=== PATIENT | female | born 1990 | race Caucasian/White ===

== ENCOUNTER 2018-10-21 19:25 | Emergency (ER) | payer OTHER ==
[2018-10-21 19:43] VITALS: BP 124/68
[2018-10-21] MEDS ORDERED: CYCLOBENZAPRINE HCL 10 MG TABLET PO ONE (21:20)
[2018-10-21] MEDS ORDERED: LIDOCAINE 5% (700 MG) TRANSDERMAL ADH..PATCH TP ONE (21:20)
[2018-10-21 21:41] LABS: APPEARANCE,URINE CLEAR; BILIRUBIN,URINE NEGATIVE (NEGATIVE); COLOR,URINE YELLOW; GLUCOSE, URINE NEGATIVE (NEGATIVE); KETONES,URINE NEGATIVE (NEGATIVE); LEUKOCYTE ESTERASE,URINE NEGATIVE (NEGATIVE); NITRITE,URINE NEGATIVE (NEGATIVE); PROTEIN,URINE NEGATIVE (NEGATIVE); URINE SPECIFIC GRAVITY 1.026; UROBILINOGEN,URINE NEGATIVE mg/dL (<2.0)
[2018-10-21] MEDS ORDERED: KETOROLAC TROMETHAMINE 60 MG/2 ML SDV IM ONE (22:01)
--- NOTE | 2018-10-21 22:40 | ER Document Report ---
HPI - HPI Patient complains to provider of: back pain Time Seen by Provider: 10/21/18 20:50 Pain Level: 4 Context: Patient is a 27-year-old female presents the emergency department complaining of generalized lower back pain. Patient states she has had generalized lower back pain for the last couple of days but noted today when she was standing in the kitchen the lower back pain increased and she was unable to stand anymore. Patient states she did take Tylenol and Motrin at home and denies trauma to the lower back area. Patient denies any urinary retention, denies dysuria, denies loss of bowel or bladder. Patient denies numbness or tingling in any extremity. Upon my arrival to the patient room she was sleeping and in no obvious distress. Past medical history: Rbing-Umlsfldqk-Javbo, hypothyroid Medications: Synthroid, control, Wellbutrin Allergies: Naproxen - REPRODUCTIVE Reproductive: DENIES: : Past Medical History - General Information source: Patient - Social History Smoking Status: Unknown if Ever Smoked Family History: Reviewed & Not Pertinent Patient has suicidal ideation: No Patient has homicidal ideation: No Renal/ Medical History: Denies: Hx Peritoneal Dialysis Past Surgical History: Reports: Hx Oral Surgery - Immunizations Hx Diphtheria, Pertussis, Tetanus Vaccination: Yes Vertical Provider Document - CONSTITUTIONAL Agree With Documented VS: Yes Notes: GENERAL: Alert, interacts well. No acute distress. HEAD: Normocephalic, atraumatic. EYES: Pupils equal, round, and reactive to light. Extraocular movements intact. ENT: Oral mucosa moist, tongue midline. NECK: Full range of motion. Supple. Trachea midline. LUNGS: Clear to auscultation bilaterally, no wheezes, rales, or rhonchi. No respiratory distress. HEART: Regular rate and rhythm. No murmur ABDOMEN: Soft, non-tender. Non-distended. Bowel sounds present in all 4 quadrants. EXTREMITIES: Moves all 4 extremities spontaneously. No edema, normal radial and dorsalis pedis pulses bilaterally. No cyanosis. 5 out of 5 strength all 4 ext remities. BACK: no cervical, thoracic, lumbar midline tenderness. No saddle anesthesia, normal distal neurovascular exam. Patient states generalized pain lumbar paraspinal region patient denies pain radiating to either buttocks or numbness or tingling in any extremity. NEUROLOGICAL: Alert and oriented x3. Normal speech. cranial nerves II through XII grossly intact PSYCH: Normal affect, normal mood. SKIN: Warm, dry, normal turgor. No rashes or lesions noted. No erythema, swelling, indurated or fluctuant areas noted in the area where a pilonidal cyst would be. - INFECTION CONTROL TRAVEL OUTSIDE OF THE [place] IN LAST 30 DAYS: No Course - Re-evaluation Re-evalutation: 10/21/18 22:40 Discussed at length due to patient not having spinal tenderness there is no need for images at this time. Discussed need to follow-up with primary care provider and [facility] for an MRI of her lower back. Patient has no urinary retention, loss of bowel or bladder, numbness or tingling in any extremity. Patient strength is 5 out of 5 all 4 extremities. - Vital Signs Vital signs: Temp Pulse Resp BP Pulse Ox 98.4 F 74 18 124/68 99 10/21/18 19:41 10/21/18 19:41 10/21/18 19:41 10/21/18 19:41 10/21/18 19:41 - Laboratory Laboratory results interpreted by me: 10/21/18 21:26 Urine Ascorbic Acid 40 H Discharge - Discharge Clinical Impression: Lower back pain Qualifiers: Chronicity: acute Back pain laterality: bilateral Sciatica presence: unspecified whether sciatica present Qualified Code(s): M54.5 - Low back pain Condition: Stable Disposition: HOME, SELF-CARE Instructions: Warm Packs ([facility]), Low Back Pain ([facility]), Muscle Strain ([facility]), Pain Medication Injection ([facility]) Additional Instructions: As we discussed you have been seen and treated in the emergency department for your lower back pain. Please take medications as prescribed. Please follow-up with your primary care provider and [facility]. Please return to the emergency room for any other concerning symptoms. Stretching Exercises for the Back The physician has recommended that you begin stretching exercises for your back. These are often used even while the back is painful. However, you should notify the physician if the activities seem to increase your pain. PELVIC TILT: Lie flat on your back with knees bent. Tighten your stomach and buttock muscles so it flattens your lower back against the floor. Hold 10 seconds. Repeat 10 times, twice daily. KNEE RAISE: Lying on the back with knees bent, raise one knee to your chest, then the other. Hold both knees against the chest 10 seconds, then lower one knee at a time. Repeat 10 times, twice daily. PARTIAL TRUNK RAISE: Lie face down, arms at your sides. Keeping your waist on the floor, use your arms raise your chest up. Support yourself on your elbows for 30 seconds. Repeat twice daily, increasing the time to two minutes a s you recover. Prescriptions: Cyclobenzaprine HCl [Flexeril 10 mg Tablet] 10 mg PO TIDP PRN #15 tab PRN Reason: Referrals: KRISTIN PETER PA-C [Primary Care Provider] - Follow up as needed ROMEO DUTTON DO [ACTIVE STAFF] - Follow up as needed
== END 2018-10-21 23:04 | disposition home or self-care (01) ==
LOC: ER 19:25
DX: M54.5 Low back pain (principal)
CPT/HCPCS: 99283; 96372; 81025; 81001; J1885

== ENCOUNTER 2018-12-01 22:05 | Emergency (ER) | payer OTHER ==
[2018-12-01 22:09] VITALS: BP 135/84
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
== END 2018-12-02 00:05 | disposition home or self-care (01) ==
LOC: ER 22:05
DX: T49.8X1A Poisoning by other topical agents, accidental (unintentional), initial encounter (principal); L24.3 Irritant contact dermatitis due to cosmetics; Y92.59 Other trade areas as the place of occurrence of the external cause; Z88.8 Allergy status to other drugs, medicaments and biological substances
CPT/HCPCS: 99283

== ENCOUNTER 2019-05-24 09:01 | Emergency (ER) | payer OTHER ==
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
--- NOTE | 2019-05-24 10:08 | EKG REPORT ---
SEVERITY:- NORMAL ECG - SINUS RHYTHM : Confirmed by: Cassius Maki 24-May-2019 10:07:41
[2019-05-24 10:19] LABS: ABSOLUTE EOSINOPHILS # (AUTO) 0.4 10^3/uL (0.0-0.6); ABSOLUTE LYMPHOCYTES (AUTO) 3.1 10^3/uL (0.5-4.7); ABSOLUTE MONOCYTES (AUTO) 0.4 10^3/uL (0.1-1.4); ABSOLUTE NEUT (AUTO) 3.7 10^3/uL (1.7-8.2); BASOPHILS % (AUTO) 0.4 % (0-2); EOSINOPHILS % (AUTO) 5.8 % (0-6); HEMATOCRIT 42.3 % (36.0-47.0); HEMOGLOBIN 14.5 g/dL (12.0-15.5); LYMPHOCYTES % (AUTO) 39.9 % (13-45); MEAN CORPUSCULAR HEMOGLOBIN 30.1 pg (27.0-33.4); MEAN CORPUSCULAR HGB CONC 34.3 g/dL (32.0-36.0); MEAN CORPUSCULAR VOLUME 88 fl (80-97); MONOCYTES % (AUTO) 5.2 % (3-13); PLATELET COUNT 248 10^3/uL (150-450); RED BLOOD COUNT 4.81 10^6/uL (3.72-5.28); RED CELL DISTRIBUTION WIDTH 12.2 % (11.5-14.0); SEGMENTED NEUTROPHILS % (AUTO) 48.7 % (42-78); TOTAL CELLS COUNTED % (AUTO) 100 %; WHITE BLOOD COUNT 7.7 10^3/uL (4.0-10.5)
[2019-05-24 10:24] LABS: ALANINE AMINOTRANSFERASE 19 U/L (9-52); ALBUMIN 4.4 g/dL (3.5-5.0); ALKALINE PHOSPHATASE 47 U/L (38-126); ANION GAP 12 (5-19); ASPARTATE AMINO TRANSFERASE 21 U/L (14-36); BILIRUBIN,DIRECT 0.2 mg/dL (0.0-0.4); BILIRUBIN,TOTAL 0.3 mg/dL (0.2-1.3); BLOOD UREA NITROGEN 12 mg/dL (7-20); CALCIUM 9.6 mg/dL (8.4-10.2); CARBON DIOXIDE 25 mmol/L (22-30); CHLORIDE 104 mmol/L (98-107); CREATINE KINASE 52 U/L (30-135); GLUCOSE 172 mg/dL (75-110); POTASSIUM 3.7 mmol/L (3.6-5.0); TOTAL PROTEIN 7.5 g/dL (6.3-8.2)
--- NOTE | 2019-05-24 10:29 | RADIOLOGY REPORT (SQ) ---
EXAM DESCRIPTION: CHEST SINGLE VIEW COMPLETED DATE/TIME: 05/24/2019 10:15 am REASON FOR STUDY: chest pain COMPARISON: 11/24/2011 NUMBER OF VIEWS: One view. TECHNIQUE: Single frontal radiographic image of the chest acquired. LIMITATIONS: None. FINDINGS: LUNGS AND PLEURA: Stable appearance. MEDIASTINUM AND HILAR STRUCTURES: Stable heart size and mediastinal structures. HEART AND VASCULAR STRUCTURES: Stable appearance. SUPPORT DEVICES: Appropriate location without change. BONES: No acute findings. OTHER: No other significant finding. IMPRESSION: STABLE APPEARANCE OF THE CHEST. SUPPORT DEVICES UNCHANGED. TECHNICAL DOCUMENTATION: JOB ID: [id number] [employer]- All Rights Reserved Reading location - IP/workstation name: [email or web address]
[2019-05-24 10:36] LABS: CREATINE KINASE MB 0.26 ng/mL (<4.55)
[2019-05-24 10:43] LABS: TROPONIN I < 0.012 ng/mL
[2019-05-24 12:50] VITALS: BP 110/61
== END 2019-05-24 12:50 | disposition home or self-care (01) ==
LOC: ER 09:01
DX: S20.212A Contusion of left front wall of thorax, initial encounter (principal); R07.9 Chest pain, unspecified; R42 Dizziness and giddiness; I45.6 Pre-excitation syndrome; X58.XXXA Exposure to other specified factors, initial encounter; Z91.14 Patient's other noncompliance with medication regimen; Z79.899 Other long term (current) drug therapy
CPT/HCPCS: 36415; 71045; 80053; 82550; 82553; 84484; 85025; 93005; 93010; 99284

== ENCOUNTER 2019-11-16 18:33 | Emergency (ER) | payer OTHER ==
[2019-11-16] MEDS ORDERED: CYCLOBENZAPRINE HCL 10 MG TABLET PO ONE (18:35)
--- NOTE | 2019-11-16 18:47 | ER Document Report ---
ED General - General TRAVEL OUTSIDE OF THE [place] IN LAST 30 DAYS: No - General Chief Complaint: Back Pain Stated Complaint: BACK PAIN Time Seen by Provider: 11/16/19 18:35 Primary Care Provider: KRISTIN PETER PA-C [Primary Care Provider] - Follow up in 1 week Notes: 28-year-old female presents with left mid upper back pain for the last week. Patient states it is intermittent in nature. Patient denies any difficulty with urinating or defecating. Patient denies any saddle anesthesia. Patient denies any injuries. Patient states it is worse today. Patient works as a nurse here in the ER. Patient denies any chest pain, dyspnea or nausea/vomiting, abdominal pain, fever. (WALDO BROTHERS) - Related Data Allergies/Adverse Reactions: naproxen sodium [From Naprelan] Allergy (Verified 11/16/19 18:40) thimerosal Allergy (Verified 11/16/19 18:40) Past Medical History - Social History Smoking Status: Unknown if Ever Smoked Family History: Reviewed & Not Pertinent, Other - Arrhythmia in mother, Crohn's disease in father. denies: CAD Endocrine Medical History: Reports: Hx Hypothyroidism Renal/ Medical History: Denies: Hx Peritoneal Dialysis Past Surgical History: Reports: Hx Cardiac Surgery - 5 cardiac ablasions, Hx Oral Surgery - Immunizations Hx Diphtheria, Pertussis, Tetanus Vaccination: Yes Review of Systems - Review of Systems Notes: Constitutional: Negative for fever. HENT: Negative for sore throat. Eyes: Negative for visual changes. Cardiovascular: Negative for chest pain. Respiratory: Negative for shortness of breath. Gastrointestinal: Negative for abdominal pain, vomiting or diarrhea. Genitourinary: Negative for dysuria. Musculoskeletal: Positive for back pain. Skin: Negative for rash. Neurological: Negative for headaches, weakness or numbness. 10 point ROS negative except as marked above and in HPI. (WALDO BROTHERS) Physical Exam - Vital signs Vitals: Temp Pulse Resp BP Pulse Ox 98.0 F 81 17 146/91 H 97 11/16/19 18:36 11/16/19 18:36 11/16/19 18:36 11/16/19 18:36 11/16/19 18:36 - Notes Notes: GENERAL: Well-appearing, well-nourished and uncomfortable HEAD: Atraumatic, normocephalic. EYES: Extraocular movements intact, sclera anicteric, conjunctiva are normal. NECK: Normal range of motion, supple without lymphadenopathy or JVD. EXTREMITIES: Normal range of motion, no pitting or edema. No clubbing or cyanosis. NEUROLOGICAL: Cranial nerves II through XII grossly intact. Normal speech, normal gait. BACK: No spinal tenderness. Muscle spasm felt to left thoracic paraspinal muscles. PSYCH: Normal mood, normal affect. SKIN: Warm, Dry, normal turgor, no rashes or lesions noted. (WALDO BROTHERS) Course - Re-evaluation Re-evalutation: On reevaluation after diazepam patient does states she feels much improved, she is moving better and is more relaxed. 11/16/19 21:59 I did review the chest x-ray, this was negative. Based on her exam this does appear to be a muscular spasm in the left mid/upper back. No midline tenderness, no neurological deficits, no abdominal pain, unremarkable vital signs. Discussed with patient. She is starting to feel some discomfort again, we will place a Lidoderm patch. Patient states that previously when she had back spasms she did get released from Flexeril but this time she did not get any relief. She did get relief from the diazepam however, as result she provided with a few of these at home. I discussed treatment recommendations, follow-up instructions, and return precautions at length with patient. Patient states appreciation and agreement. She is going home with her family at this time. St able at time of discharge. (ODETTE PITTS) 11/16/19 No rapid progression of symptoms, systemic symptoms including fevers, chills, weight loss, history of recent bacterial infection, bilateral symptoms, numbness, weakness, difficulty walking, urinary retention or bowel incontinence, personal history of cancer, immunosuppression, diabetes, known AAA, or history of IV drug use. Exam is without point tenderness over vertebral bodies, pulsatile abdominal mass, and patient has symmetric and intact lower extremity strength. Based on history and physical, I have a very low suspicion of a concerning etiology of pain including epidural compression syndrome, spinal infection, transverse myelitis, malignancy, abdominal aortic aneurysm, renal colic, acute lower extremity claudication, neurogenic claudication, ankylosing spondylitis, or other intra-abdominal process. Due to absence of concerning risk factors in history and physical as well as absence of rapidly progressive, severe, or bilateral symptoms, will defer imaging at this point. 20:31 Pt states pain is still there. Having pain with deep breaths. Will order Valium and chest x-ray. (WALDO BROTHERS) - Vital Signs Vital signs: Temp Pulse Resp BP Pulse Ox 98.0 F 67 16 131/76 H 100 11/16/19 22:11 11/16/19 22:11 11/16/19 22:11 11/16/19 22:11 11/16/19 22:11 - Laboratory Laboratory results interpreted by me: 11/16/19 19:01 Urine Protein 30 H Discharge - Discharge Clinical Impression: Muscle spasm Left-sided back pain Qualifiers: Back pain location: thoracic back pain Chronicity: acute Qualified Code(s): M54.6 - Pain in thoracic spine Condition: Stable Disposition: HOME, SELF-CARE Additional Instructions: Your evaluation is most consistent with a muscle spasm. I recommend heat to the area, gentle massage, the prescribed anti-inflammatories and muscle relaxer (using the precautions), and time/rest. Follow-up with primary care for additional management. Return if you worsen including difficulty breathing, fever, vomiting, or any other concerning or worsening symptoms. Prescriptions: Diazepam [Valium 5 mg Tablet] 1 - 2 tab PO TID PRN #12 tablet PRN Reason: Forms: Return to Work Referrals: KRISTIN PETER PA-C [Primary Care Provider] - Follow up in 1 week
[2019-11-16 19:21] LABS: APPEARANCE,URINE CLEAR; BILIRUBIN,URINE NEGATIVE (NEGATIVE); COLOR,URINE YELLOW; GLUCOSE, URINE NEGATIVE (NEGATIVE); KETONES,URINE NEGATIVE (NEGATIVE); PROTEIN,URINE 30 mg/dL (NEGATIVE); URINE SPECIFIC GRAVITY 1.026; UROBILINOGEN,URINE NEGATIVE mg/dL (<2.0)
[2019-11-16] MEDS ORDERED: KETOROLAC TROMETHAMINE 60 MG/2 ML SDV IM ONE (19:29)
[2019-11-16] MEDS ORDERED: DIAZEPAM 5 MG TABLET PO ONE (20:33)
--- NOTE | 2019-11-16 21:28 | RADIOLOGY REPORT (SQ) ---
XR CHEST 2 VIEWS EXAM DATE: 11/16/2019 8:33 PM DO[facility] WIG HACKLER HISTORY: Painful deep breathing, left sided pain. COMPARISON: 05/24/2019 FINDINGS: Normal heart size without pulmonary edema. No focal consolidation is identified. No pleural effusions or pneumothorax. IMPRESSION: No evidence of acute cardiopulmonary disease.
[2019-11-16] MEDS ORDERED: LIDOCAINE 5% (700 MG) TRANSDERMAL ADH..PATCH TP ONE (21:57)
[2019-11-16 22:14] VITALS: BP 131/76
== END 2019-11-16 22:14 | disposition home or self-care (01) ==
LOC: ER 18:33
DX: M62.830 Muscle spasm of back (principal); M54.6 Pain in thoracic spine
CPT/HCPCS: 99283; 96372; 81025; 81001; 71046; J1885

== ENCOUNTER 2019-12-23 11:26 | Emergency (ER) | payer OTHER ==
[2019-12-23] MEDS ORDERED: IPRATROPIUM/ALBUTEROL 0.5-2.5 MG/3 ML AMPUL NEB ONE (11:58)
[2019-12-23] MEDS ORDERED: METHYLPREDNISOLONE INJ 125 MG/2 ML SDV IV ONE (11:58)
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
[2019-12-23 12:47] LABS: ABSOLUTE EOSINOPHILS # (AUTO) 0.2 10^3/uL (0.0-0.6); ABSOLUTE LYMPHOCYTES (AUTO) 1.7 10^3/uL (0.5-4.7); ABSOLUTE MONOCYTES (AUTO) 0.3 10^3/uL (0.1-1.4); ABSOLUTE NEUT (AUTO) 3.4 10^3/uL (1.7-8.2); BASOPHILS % (AUTO) 0.6 % (0-2); EOSINOPHILS % (AUTO) 3.7 % (0-6); HEMATOCRIT 44.3 % (36.0-47.0); HEMOGLOBIN 15.1 g/dL (12.0-15.5); LYMPHOCYTES % (AUTO) 30.5 % (13-45); MEAN CORPUSCULAR HEMOGLOBIN 30.4 pg (27.0-33.4); MEAN CORPUSCULAR HGB CONC 34.1 g/dL (32.0-36.0); MEAN CORPUSCULAR VOLUME 89 fl (80-97); PLATELET COUNT 273 10^3/uL (150-450); RED BLOOD COUNT 4.97 10^6/uL (3.72-5.28); RED CELL DISTRIBUTION WIDTH 12.3 % (11.5-14.0); SEGMENTED NEUTROPHILS % (AUTO) 60.2 % (42-78); TOTAL CELLS COUNTED % (AUTO) 100 %; WHITE BLOOD COUNT 5.6 10^3/uL (4.0-10.5)
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
[2019-12-23 13:06] LABS: ALBUMIN 4.9 g/dL (3.5-5.0); ALKALINE PHOSPHATASE 48 U/L (38-126); ANION GAP 12 (5-19); ASPARTATE AMINO TRANSFERASE 25 U/L (14-36); BILIRUBIN,DIRECT 0.3 mg/dL (0.0-0.4); BILIRUBIN,TOTAL 0.4 mg/dL (0.2-1.3); BLOOD UREA NITROGEN 12 mg/dL (7-20); CALCIUM 9.6 mg/dL (8.4-10.2); CARBON DIOXIDE 27 mmol/L (22-30); CHLORIDE 104 mmol/L (98-107); GLUCOSE 113 mg/dL (75-110); TOTAL PROTEIN 8.5 g/dL (6.3-8.2)
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
[2019-12-23 15:19] VITALS: BP 131/79
--- NOTE | 2019-12-23 18:09 | EKG REPORT ---
SEVERITY:- NORMAL ECG - SINUS RHYTHM : Confirmed by: Elaine Godoy MD 23-Dec-2019 18:08:39
== END 2019-12-23 15:19 | disposition home or self-care (01) ==
LOC: ER 11:26
DX: T59.811A Toxic effect of smoke, accidental (unintentional), initial encounter (principal); J70.5 Respiratory conditions due to smoke inhalation; R07.9 Chest pain, unspecified; R05 Cough; R06.02 Shortness of breath; Y92.009 Unspecified place in unspecified non-institutional (private) residence as the place of occurrence of the external cause; Z88.8 Allergy status to other drugs, medicaments and biological substances; Z79.899 Other long term (current) drug therapy
CPT/HCPCS: 93005; 94640; 99284; 96374; 36415; 82375; 85025; 80053; 71046; 93010; J2930; J7620

== ENCOUNTER → 2020-03-18 | Outpatient (CLI) | payer OTHER ==
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
== END ==
LOC: RAD 10:37
PROVIDERS: ATTEND Physician Assistant
DX: R91.1 Solitary pulmonary nodule (principal)
CPT/HCPCS: 71250